=== PATIENT | male | born 1965 | race Caucasian/White ===

== ENCOUNTER 2020-11-12 10:02 | Outpatient (CLI) | payer BC, SELFPAY ==
[2020-11-12 10:51] LABS: SARS-CoV-2 Ag Negative (Negative)
== END 2020-11-12 10:03 | disposition home or self-care (01) ==
LOC: CHSLAB 10:09
PROVIDERS: PCP Internal Medicine; Visit Provider Internal Medicine
DX: Z20.828 Contact with and (suspected) exposure to other viral communicable diseases (principal)
CPT/HCPCS: 87426

== ENCOUNTER 2021-10-10 16:45 | Outpatient (CLI) | payer BC, SELFPAY ==
[2021-10-10 17:44] LABS: SARS-CoV-2 RNA PCR Negative (Negative)
== END 2021-10-10 16:46 | disposition home or self-care (01) ==
LOC: CHSLAB 16:47
PROVIDERS: PCP Internal Medicine; Visit Provider Internal Medicine
DX: Z20.822 Contact with and (suspected) exposure to COVID-19 (principal)
CPT/HCPCS: C9803; U0003; U0005

== ENCOUNTER 2021-10-31 12:05 | Outpatient (CLI) | payer BC, SELFPAY ==
[2021-10-31 17:29] LABS: SARS-CoV-2 Ag Negative (Negative)
== END 2021-10-31 12:06 | disposition home or self-care (01) ==
LOC: CHSLAB 12:08
PROVIDERS: PCP Internal Medicine; Visit Provider Internal Medicine
DX: J06.9 Acute upper respiratory infection, unspecified (principal); Z20.822 Contact with and (suspected) exposure to COVID-19
CPT/HCPCS: 87426; C9803

== ENCOUNTER 2021-11-14 12:33 | Outpatient (CLI) | payer BC, SELFPAY ==
[2021-11-14 14:57] LABS: SARS-CoV-2 RNA PCR Negative (Negative)
== END 2021-11-14 12:34 | disposition home or self-care (01) ==
LOC: CHSLAB 12:38
PROVIDERS: PCP Internal Medicine; Visit Provider Internal Medicine
DX: Z20.822 Contact with and (suspected) exposure to COVID-19 (principal)
CPT/HCPCS: C9803; U0003; U0005

== ENCOUNTER 2021-11-20 15:35 | Outpatient (CLI) | payer BC, SELFPAY ==
[2021-11-20 16:54] LABS: Influenza A QL RT-PCR Negative (Negative); Influenza B QL RT-PCR Negative (Negative); SARS-CoV-2 RNA PCR Positive (Negative)
== END 2021-11-20 15:36 | disposition home or self-care (01) ==
LOC: CHSLAB 15:39
PROVIDERS: PCP Internal Medicine; Visit Provider Internal Medicine
DX: U07.1 COVID-19 (principal); J06.9 Acute upper respiratory infection, unspecified
CPT/HCPCS: 87502; C9803; U0003; U0005

== ENCOUNTER 2021-11-26 09:49 | Outpatient (CLI) | payer BC, SELFPAY ==
[2021-11-26 10:51] LABS: SARS-CoV-2 Ag Positive (Negative)
== END 2021-11-26 09:50 | disposition home or self-care (01) ==
LOC: CHSLAB 09:52
PROVIDERS: PCP Internal Medicine; Visit Provider Internal Medicine
DX: U07.1 COVID-19 (principal)
CPT/HCPCS: 87426; C9803

== ENCOUNTER 2022-12-12 01:06 | Day surgery (SDC) | payer BC, SELFPAY ==
[2022-12-02 09:30] VITALS: BMI 29.2
[2022-12-12 08:38] VITALS: BP 151/95; PULSE 62; RESP 16; TEMP 36.2; O2SAT 100; BMI 28.1
[2022-12-12] MEDS: LACTATED RINGERS 1,000 ML 150 ML IV CONT (08:45)
--- NOTE | 2022-12-12 09:04 | WPDANESEPPF ---
Anes - Initial Pre Proc Eval Procedure: Operation Date: 12/12/22 09:00 Proposed Procedures p Screening Colonoscopy - Morris Cutler MD Date/Time: 12/12/22 09:04 Surgeon: Morris Cutler MD Pre Op Diagnosis: neoplasm screening Patient Data Age: 57 Gender: M Height: 1.83 m Weight: 94.1 kg Last Vital Signs Temp 97.2 F L 12/12/22 08:38 Pulse 62 12/12/22 08:38 Resp 16 12/12/22 08:38 BP 151/95 H 12/12/22 08:38 Pulse Ox 100 12/12/22 08:38 O2 Del Method Room Air 12/12/22 08:38 Allergies Allergy/AdvReac Type Severity Reaction Status Date / Time No Known Allergies Allergy Verified 12/12/22 08:37 Home Medications Medication Instructions Recorded Confirmed Type atorvastatin 10 mg tablet 10 mg PO DAILY 12/02/22 12/12/22 History fluoxetine 40 mg capsule 40 mg PO DAILY 12/02/22 12/12/22 History verapamil 180 mg tablet,extended 180 mg PO DAILY 12/02/22 12/12/22 History release Patient hx anesthesia problems: none Family hx anesthesia problems: none Results Review: All pre-operative results and documents have been reviewed as part of the pre-operative evaluation. PENDING SALE TO [facility] Social History Social History Smoking status: Never smoker Alcohol intake: current Drinks per week: 2 Substance use type: does not use Living arrangements: alone Anes - Eval Final PreProcedure Day of Procedure 12/12/22 09:04 Patient weight: normal Heart: regular rate and rhythm Lungs: clear to auscultation Airway: Mallampati scale class II Neurological: alert and oriented Last oral intake: >/= 8 hours ASA classification: II Emergent: no Anesthetic plan: proceed Anesthesia type and monitoring: general GIVS and standard monitoring Results Review: All pre-operative results and documents have been reviewed as part of the pre-operative evaluation. Informed Consent: The patient's anesthetic plan and its attendant risks and benefits were discussed with the patient/family/POA. Questions were solicited and answers provided to the satisfaction of the patient/family/POA.
--- NOTE | 2022-12-12 09:15 | PM.HPGS ---
History of Present Illness History of Present Illness Consent: Risks, benefits, and alternatives have been discussed and questions answered. Patient agrees to proceed with procedure. Chief complaint: neoplasm screening Narrative: Ja Vázquez is a 57 year old male here for first screening colonoscopy Review of Systems Constitutional: Constitutional: Denies headache(s) and Denies weakness Eyes: Eyes: Denies blurry vision ENT: Reports Normal hearing present, Denies headache(s) and Denies neck pain Cardiovascular: Cardiovascular: Denies chest pain and Denies dyspnea Respiratory: Respiratory: Denies dyspnea Gastrointestinal: Gastrointestinal: Reports no additional gastrointestinal complaints Genitourinary: Genitourinary: Denies dysuria Musculoskeletal: Musculoskeletal: Denies neck pain Integumentary/Breasts: Skin/Breast: Denies dry skin Neurologic: Reports Normal hearing present, Denies headache(s) and Denies weakness Psychiatric: Psychiatric: Denies anxiety Endocrine: Endocrine: Denies change in body appearance Hematologic/Lymphatic: Hematologic/Lymphatic: Denies easy bleeding Allergic/Immunologic: Allergic/Immunologic: Denies urticaria [facility] Past Medical History Medical History (Updated 12/12/22 @ 09:16 by Morris Cutler MD) Colon cancer screening Social History Social History Smoking status: Never smoker Alcohol intake: current Drinks per week: 2 Substance use type: does not use Living arrangements: alone Meds Home Medications and Allergies Home Medications Medication Instructions Recorded Confirmed Type atorvastatin 10 mg tablet 10 mg PO DAILY 12/02/22 12/12/22 History fluoxetine 40 mg capsule 40 mg PO DAILY 12/02/22 12/12/22 History verapamil 180 mg tablet,extended 180 mg PO DAILY 12/02/22 12/12/22 History release Allergies Allergy/AdvReac Type Severity Reaction Status Date / Time No Known Allergies Allergy Verified 12/12/22 08:37 Vital Signs Vital Signs - 24 hr 12/12/22 08:38 Temperature 97.2 F L Pulse Rate 62 Respiratory Rate 16 Blood Pressure 151/95 H Pulse Oximetry 100 Oxygen Delivery Room Air Exam Const: General: comfortable and no acute distress HENMT: Face/Nose/Sinus: Normal nares present Eyes: General: appearance normal, both eyes and all related structures Neck: Neck: no JVD Resp: Auscultation: clear to auscultation bilaterally Cardio: Rate: regular rate Rhythm: regular rhythm GI: Inspection: non-distended GI Palp: Yes Soft to palpation Skin: General skin exam: normal color Neuro: General: gait normal Speech: normal speech Extrem: General: normal to inspection Psych: Mental Status: mental status grossly normal Assessment and Plan Assessment and plan (1) Colon cancer screening: Code(s): Z12.11 - Encounter for screening for malignant neoplasm of colon Status: Acute Assessment and Plan: colonoscopy
[2022-12-12 09:43] VITALS: BP 146/97; PULSE 58; RESP 17; O2SAT 98
[2022-12-12 09:53] VITALS: BP 149/97; PULSE 57; RESP 18; O2SAT 99
[2022-12-12 10:03] VITALS: BP 148/100; PULSE 57; RESP 16; O2SAT 100
== END 2022-12-12 10:07 | disposition home or self-care (01) ==
PROVIDERS: PCP Internal Medicine; Visit Provider Internal Medicine Gastroenterology
PROC: 0DJD8ZZ Inspection of Lower Intestinal Tract, Via Natural or Artificial Opening Endoscopic (ICD-10-PCS; CPT 45378; principal; 2022-12-12 09:00)
DX: Z12.11 Encounter for screening for malignant neoplasm of colon (principal); D12.0 Benign neoplasm of cecum; D12.2 Benign neoplasm of ascending colon; K64.8 Other hemorrhoids
CPT/HCPCS: 45385; 45380; 88305; J2704; J7120

== ENCOUNTER 2024-03-28 12:21 | Outpatient (CLI) | payer BC, SELFPAY ==
--- NOTE | ~2024-03-28 | XR_ITS ---
Lumbosacral Spine: AP and lateral views Clinical History: Pain Findings: The normal lordotic curve is maintained. The vertebral bodies and posterior elements are i ntact. The intervertebral disc spaces are preserved. Mild facet joint degenerative changes are prese nt. The sacroiliac joints are normally outlined. Impression: Mild facet joint degenerative changes. Reviewed, dictated and finalized at location . Impression: Mild facet joint degenerative changes.
--- NOTE | ~2024-03-28 | XR_ITS ---
AP and lateral views of the right hip Clinical history: Pain Findings: No acute fracture or dislocation is seen. Osseous alignment is anatomic. The right hip join t space is preserved. Soft tissues are unremarkable. Impression: No significant abnormality is seen. Reviewed, dictated and finalized at location . Impression: No significant abnormality is seen.
== END 2024-03-28 12:22 | disposition home or self-care (01) ==
LOC: CHSIMG 12:23
PROVIDERS: PCP Internal Medicine; Visit Provider Internal Medicine
DX: M54.50 Low back pain, unspecified (principal); M25.551 Pain in right hip
CPT/HCPCS: 72100; 73502